=== PATIENT | female | born 1975 | race Two or more races ===

== ENCOUNTER 2020-03-07 08:50 | Day surgery (SDC) | payer OTHER | END 2020-03-07 20:10 | disposition home or self-care (01) | LOC: CIR.AMB 08:50 → ADM 12:15 → CIR.AMB 16:45 | PROVIDERS: ATTEND Colon & Rectal Surgery | DX: K64.4 Residual hemorrhoidal skin tags (principal); K64.8 Other hemorrhoids; K60.1 Chronic anal fissure; K62.4 Stenosis of anus and rectum ==

== ENCOUNTER 2020-03-16 15:05 | Emergency (ER) | payer OTHER ==
[~2020-03-16] VITALS: Ht 165.1 cm; Wt 90.7 kg
[2020-03-16] MEDS ORDERED: PERCOCET 5-3251 EACH (15:19)
== END 2020-03-16 18:13 | disposition home or self-care (01) ==
LOC: ER 15:05
DX: G89.18 Other acute postprocedural pain (principal); K62.89 Other specified diseases of anus and rectum; D72.828 Other elevated white blood cell count

== ENCOUNTER 2020-03-18 09:54 | Inpatient (IN) | payer OTHER ==
[~2020-03-18] VITALS: Ht 162.6 cm; Wt 69.9 kg
[~2020-03-18 09:54] MED LIST: PERCOCET 5-3251 EACH
[2020-03-18] MEDS ORDERED: KETO10TA2 (10:08)
[2020-03-18] MEDS ORDERED: PERCOCET 5-3251 EACH (10:09)
--- NOTE | 2020-03-18 10:14 | NUR ---
PACIENTE ALERTA Y ORIENTADA X3. REFIERE EL [address] CLINE POR HEMORROIDES Y RIOS SEGUIDO EL TRATAMIENTO MEDICO PARA EL DOLOR MALIA AUN CONTINUA CON MUCHO DOLOR Y LAS HEMORRIDES JENNY INFLAMADAS. REFIERE VISITO LA JOELLE DE EMERGENCIAS HACE UNOS GARZA POR LO MISMO Y LA DIERON DE SAMIRA CON TRATAMIENTO MEDICO MALIA NO RIOS ALISSA. SE UBICA EN AREA DE OBSERVACION PARA EVALUACION MEDICA.
--- NOTE | 2020-03-18 11:20 | NUR ---
PACIENTE EVALUADA PO REL DR. LOCKWOOD MISS. CHARLIE KG MUESTRAS DE [place] Y SE MANTIENE EN OBSERVACION PO RCAMBIOS EN ZURITA CONDICION
--- NOTE | 2020-03-18 16:27 | NUR ---
SE RECIBE PTE ALERTA Y ORIENTADA X3 EN DANIEL CON BARANDAS ELEVADAS. SE RECIBE PTE CANALIZADA AREA ÁLVARO DE EDEMA Y DE ENROJECIMIENTO. PTE EN ESPERA DE CONSULTA CON DR.NICOLAS JEAN.
[2020-03-22] MEDS ORDERED: OXYC1TAB9 PO (16:26)
[2020-03-22] MEDS ORDERED: GABAPENTIN300 MG PO (16:27)
[2020-03-22] MEDS ORDERED: CELEBREX200MG PO (16:27)
== END 2020-03-22 17:23 | disposition home or self-care (01) | DRG 349 ==
LOC: ER 09:54 → SURH 21:06
PROVIDERS: ADMIT Colon & Rectal Surgery; ATTEND Colon & Rectal Surgery
PROC: BW21Y0Z Computerized Tomography (CT Scan) of Abdomen and Pelvis using Other Contrast, Unenhanced and Enhanced (ICD-10-PCS; 2020-03-18)
PROC: 0D9Q00Z Drainage of Anus with Drainage Device, Open Approach (ICD-10-PCS; principal; 2020-03-19 15:00)
DX: K61.0 Anal abscess (principal); K62.89 Other specified diseases of anus and rectum; K64.4 Residual hemorrhoidal skin tags; Z20.828 Contact with and (suspected) exposure to other viral communicable diseases

== ENCOUNTER 2020-10-22 15:11 | Inpatient (IN) | payer OTHER ==
[~2020-10-22] VITALS: Ht 165.1 cm; Wt 89.8 kg
[~2020-10-22 15:11] MED LIST changes: +CELEBREX200MG PO; +GABAPENTIN300 MG PO; +KETO10TA2; +OXYC1TAB9 PO
--- NOTE | 2020-10-22 15:21 | NUR ---
SE RECIBE PACIENTE ALERTA, ORIENTADA X 3 ESFERAS, REFIERE TENER DOLOR EN AREA ANAL POR ABSCESO EN ANO.PTE OPERADA DE HEMORROIDES Y FISTILA 2019, REFIERE QUE DESDE LA OPERACION SE LE FORMA LOREN ABSCESO EN AREA DE ANO Y SE VACIA, EN ESTOS MOMENTOS ESTA CON DOLOR Y SIENTE EL AREA INFLAMADA. PTE. . SE UBICA EN AREA DE OBSERVACION.
--- NOTE | 2020-10-22 16:50 | NUR ---
SE ORIENTA PTE SOBRE TX MEDICO EL CUAL REFIERE ENTENDER.SE LE EXTRAEN MUESTRAS,SE CANALIZA Y SE ADMINISTRA MEDICAMENTO TRAVON ORDEN MEDICA,SE UBICA EN DANIEL CON BARANDAS ELEVADAS.
[2020-10-23] MEDS ORDERED: CYCLOBENZAPRINE10 MG (11:27)
[2020-10-27] MEDS ORDERED: PERCOCET 5-3251 EACH PO (15:53)
== END 2020-10-27 18:47 | disposition home or self-care (01) | DRG 349 ==
LOC: ER 15:11 → SEC-K 22:47 → SURH 22:47
PROVIDERS: ADMIT Colon & Rectal Surgery; ATTEND Colon & Rectal Surgery
PROC: 0D9Q8ZZ Drainage of Anus, Via Natural or Artificial Opening Endoscopic (ICD-10-PCS; principal; 2020-10-26 12:00)
DX: K61.0 Anal abscess (principal); Z20.822 Contact with and (suspected) exposure to COVID-19; E66.8 Other obesity; Z68.33 Body mass index [BMI] 33.0-33.9, adult; G47.33 Obstructive sleep apnea (adult) (pediatric)

== ENCOUNTER 2024-03-09 07:18 | Day surgery (SDC) | payer OTHER ==
[~2024-03-09 07:18] MED LIST changes: +CLINDAMYCIN HC300 MG PO; +CYCLOBENZAPRINE10 MG; +PERCOCET 5-3251 EACH PO
[2024-03-09] MEDS ORDERED: LIDOCAINE HCL 1%/EPINEPHRINE 20ML VIAL IJ ONE ×2 (09:44→10:15)
[2024-03-09] MEDS ORDERED: BUPIVACAINE HCL/MPF 0.5% 30ML VIAL ONE (09:44)
[2024-03-09] MEDS ORDERED: CEFTRIAXONE SODIUM 2,000 MG VIAL ONE (09:44)
[2024-03-09] MEDS ORDERED: HEMOSTATIC MATRIX 1 KIT KIT TOP ONE ×2 (09:44→10:15)
[2024-03-09] MEDS ORDERED: POVIDONE-IODINE 118 ML BOTT TOP ONE (09:44)
[2024-03-09] MEDS ORDERED: METRONIDAZOLE/SODIUM CHLORIDE 500 MG/100 ML PIGGYBACK IV ONE (09:45)
[2024-03-09] MEDS ORDERED: METRONIDAZOLE/SODIUM CHLORIDE 200 ML IV ONE (10:15)
[2024-03-09] MEDS ORDERED: BUPIVACAINE HCL 30 ML VIAL IJ ONE (10:15)
[2024-03-09] MEDS ORDERED: CEFTRIAXONE SODIUM 2,000 MG in 0.9 % SODIUM CHLORIDE 50 ML IV ONE (10:15)
[2024-03-09] MEDS ORDERED: POVIDONE-IODINE 118 ML BOTT TP ONE (10:15)
[2024-03-09] MEDS ORDERED: DIBUCAINE 30 GM TUBE ONE (10:21)
[2024-03-09] MEDS ORDERED: HYDROGEN PEROXIDE 473 ML BOTTLE TOP ONE (10:21)
[2024-03-09] MEDS ORDERED: DIBUCAINE 30 GM TUBE RECTAL ONE (10:30)
[2024-03-09] MEDS ORDERED: HYDROGEN PEROXIDE 118 ML SOLUTION TOP ONE (10:30)
== END 2024-03-09 16:25 | disposition home or self-care (01) ==
LOC: CIR.AMB 07:18
PROVIDERS: ATTEND Colon & Rectal Surgery
DX: K60.3 Anal fistula (principal); K64.2 Third degree hemorrhoids; K64.4 Residual hemorrhoidal skin tags; K60.1 Chronic anal fissure; E03.9 Hypothyroidism, unspecified; K76.0 Fatty (change of) liver, not elsewhere classified